=== PATIENT | female | born 1990 | race Caucasian/White ===

== ENCOUNTER → 2021-11-17 10:32 | Outpatient (BNVA) | payer MEDICAID, SELFPAY | PROVIDERS: Family Provider Family Medicine; Visit Provider Nurse Practitioner Women's Health | DX: N92.6 Irregular menstruation, unspecified (principal) | CPT/HCPCS: 81025; 84702 ==

== ENCOUNTER 2021-11-25 07:46 | Outpatient (CLI) | payer MEDICAID, SELFPAY ==
--- NOTE | 2021-11-25 08:22 | US_ITS ---
WS: [id number] INDICATION: RIGHT chest wall lump TECHNIQUE: Ultrasound chest wall area of concern FINDINGS: Ultrasound chest wall area of concern. Normal underlying subcutaneous soft tissue. No cysti c or solid lesions. No suspicious findings. US/US chest 34140 IMPRESSION: No suspicious findings in the area of concern RIGHT chest wall belo w clavicle
== END 2021-11-25 07:47 | disposition home or self-care (01) ==
LOC: RAD 07:46
PROVIDERS: PCP Nurse Practitioner Family; Visit Provider Family Medicine
DX: R22.2 Localized swelling, mass and lump, trunk (principal)
CPT/HCPCS: 76604

== ENCOUNTER → 2021-12-03 08:08 | Outpatient (BNVA) | payer MEDICAID, SELFPAY | PROVIDERS: PCP Nurse Practitioner Family; Visit Provider Obstetrics & Gynecology | DX: Z34.90 Encounter for supervision of normal pregnancy, unspecified, unspecified trimester (principal) | CPT/HCPCS: 80307; 84315; 84443; 85025; 86592; 86762; 86803; 86850; 86900; 87086; 87340 ==

== ENCOUNTER 2021-12-15 10:38 | Emergency (ER) | payer MEDICAID, SELFPAY ==
[2021-12-15 10:47] VITALS: BP 143/80; PULSE 74; RESP 20; TEMP 36.9; O2SAT 100; BMI 27.8
--- NOTE | 2021-12-15 11:01 | US_ITS ---
WS: [id number] EARLY OBSTETRICAL ULTRASOUND (<14 WEEKS). HISTORY: eval for status COMPARISON: 11/24/2021 Single intrauterine gestation is identified. There is a crown-rump length measuring 5.4 cm. This grupo esponds to gestation of 12 weeks and 0 days. No cardiac activity is identified. This was witnessed by Dr. Galindo, ER physician. No motion or activity. Placenta is posterior in the cervix is closed. No rmal amount of amniotic fluid remains. No adnexal masses. Prior ultrasound from 11/24/2021 demonstrate cardiac activity and gestational age was calculated at 8 weeks and 5 days. US/US OB <= 14 weeks fetus 20240 IMPRESSION: 1. Embryonic demise. No cardiac activity or motion identified. 2. age estimated at 12 weeks 0 days.
--- NOTE | 2021-12-15 11:10 | ED_ITS ---
HPI - General Adult General: Chief complaint: OB/Uterine Contractions Stated complaint: abnormal labs Time Seen by Provider: 12/15/21 11:01 History of Present Illness: Patient is a 31-year-old female G3, P2 presenting to the emergency room for a second opinion after she was told by Dr. Kelly an hour ago that she potentially may have had a demise. Patient tells me that earlier today, she establish care with Dr. Kelly and in the office, Dr. Kelly cannot hear any heartbeat. Patient then came to the emergency room for formal evaluation. Patient denies any new vaginal discharge, pelvic cramps or contraction, nausea/vomiting, abdominal pain, back pain, fever or chills, urinary complaints diarrhea melena hematochezia. Patient has no other focal complaints today. Onset: unknown Duration:ongoing Location:home Severity: moderate Associated symptoms: Deny chest pain, dyspnea, nausea, rash, palpitations or vomiting Review of Systems Const: Denies: fever(s) or chills Eyes: Denies: change in vision ENMT: Denies: mouth pain Card: Denies: chest pain or palpitations Resp: Denies: dyspnea or non-productive cough GI: Denies: abdominal pain, nausea, vomiting or diarrhea : Denies: dysuria Musc: Denies: extremity pain Skin/Breast: Denies: rash or new lesions Neuro: Denies: weakness in extremities Psych: Reports: other (Normal mood) Jacob/Lymph: Denies: easy bruising PFSH ED PFSH: Medical History Asthma No pertinent past medical history neghx: htn,dm,thyroid,dvt/pe PCP: VIOLET MONTELONGO Surgical History No pertinent past surgical history Family History Grandmother Breast cancer Maternal, dx age unknown Grandfather Diabetes Maternal Stroke Paternal, age 55 Mother Hypercholesteremia Hypertension Father Hypercholesteremia Hypertension Denies family history of Colon cancer Ovarian cancer Uterine cancer Thyroid disease Social History (Updated 12/15/21 @ 11:11 by Marcella Galindo MD) Smoking and tobacco status: never smoked Alcohol intake: never Substance/Drug Use: never Physical Exam Const: COMMON NORMALS: alert HENMT: COMMON NORMALS: atraumatic HEAD & SCALP: atraumatic MOUTH: moist mucous membranes not abnormal Eye: COMMON NORMALS: EOMs intact bilaterally and conjunctivae normal CONJUNCTIVA: Yes conjunctivae normal Neck/C-Spine: COMMON NORMALS: full ROM and supple Resp: COMMON NORMALS: normal respiratory effort and clear to auscultation bilaterally AUSCULTATION: clear to auscultation bilaterally Cardio: COMMON NORMALS: regular rate RATE: regular rate OTHER: No focal TTP. NO guarding rebound, guarding, rigidity. No CVA tenderness to percussion. Neg Ward/Neg McBurney's point tenderness, no suprabupic tenderness to palpation. GI: COMMON NORMALS: Soft to palpation and non-tender PALPATION: Yes Soft to palpation Extremity: COMMON NORMALS: full ROM Neuro: SENSORIUM/ORIENTATION: Yes alert MOTOR EXAM: No Abnormal motor strength present and Other motor observations present (no focal motor deficits) Psych: COMMON NORMALS: speech normal SPEECH: Yes normal speech MOOD & AFFECT: Yes euthymic mood Course Vital Signs: Vital signs: Vital Signs Temperature 98.5 F 12/15/21 10:47 Pulse Rate 86 12/15/21 11:23 Respiratory Rate 16 12/15/21 11:23 Blood Pressure 146/74 12/15/21 11:23 Pulse Oximetry 99 12/15/21 11:23 [facility] - General Adult Medical Decision Making 31-year-old female G3, P2 at 12 weeks 5 days by prior US presenting to the emergency room for evaluation of possible demise. On physical exam, patient is hemodynamically stable, no focal tenderness to palpation of the abdomen. Patient has no new vaginal discharge or bleeding. H&H appears to be stable. US showed demise. Patient is instructed to follow up with Dr. Kelly for further evaluation of her symptoms. Disposition: Discharge. Patient counseled regarding diagnostic impression, treatment plan. Patient given ED strict return precautions to return for continuation, worsening, or development of new symptoms. Instructed to f/u w/ PCP regarding symptoms today. Patient verbalized understanding. Lab Data : 12/15/21 11:06 12/15/21 11:06 Radiology Impressions Ultrasound 12/15/21 11:01 IMPRESSION: 1. Embryonic demise. No cardiac activity or motion identified. 2. age estimated at 12 weeks 0 days. Laboratory Results WBC 5.5 10^3/uL (4.0-10.0) 12/15/21 11:06 RBC 4.59 10^6/uL (4.1-5.3) 12/15/21 11:06 Hgb 13.9 g/dL (11.5-15.3) 12/15/21 11:06 Hct 39.9 % (37.0-47.0) 12/15/21 11:06 MCV 86.9 fl (81-99) 12/15/21 11:06 MCH 30.3 pg (28.0-34.0) 12/15/21 11:06 MCHC 34.8 g/dL (30.0-36.0) 12/15/21 11:06 RDW 12.1 % (12.1-15.1) 12/15/21 11:06 Plt Count 300 10^3/cmm (130-400) 12/15/21 11:06 MPV 9.7 fL (7.4-10.4) 12/15/21 11:06 Neut % (Auto) 60.8 % 12/15/21 11:06 Lymph % (Auto) 27.6 % 12/15/21 11:06 [place] % (Auto) 6.6 % 12/15/21 11:06 Eos % (Auto) 4.4 % 12/15/21 11:06 Baso % (Auto) 0.4 % 12/15/21 11:06 Neut # (Auto) 3.34 10^3/uL (1.8-7.7) 12/15/21 11:06 Lymph # (Auto) 1.5 10^3/uL (0.8-4.8) 12/15/21 11:06 [place] # (Auto) 0.4 10^3/uL (0.2-0.9) 12/15/21 11:06 Eos # (Auto) 0.2 10^3/uL (0.0-0.8) 12/15/21 11:06 Baso # (Auto) 0.0 10^3/uL (0.0-0.1) 12/15/21 11:06 Nucleated RBC % (auto) 0 % 12/15/21 11:06 Nucleated RBCs # 0.0 /100WBC 12/15/21 11:06 Sodium 136 mmol/L (136-145) 12/15/21 11:06 Potassium 4.2 mmol/L (3.5-5.1) 12/15/21 11:06 Chloride 101 mmol/L (98-107) 12/15/21 11:06 Carbon Dioxide 22 mmol/L (22-29) 12/15/21 11:06 Anion Gap 17.2 (5-19) 12/15/21 11:06 BUN 10 mg/dL (6-20) 12/15/21 11:06 Creatinine 0.4 mg/dL (0.5-0.9) L 12/15/21 11:06 GFR Calculation 186.2 mL/min (90-130) H 12/15/21 11:06 Glucose 90 mg/dL (65-115) 12/15/21 11:06 Calculated Osmolality 281 mOsm/kg (285-295) L 12/15/21 11:06 Calcium 9.6 mg/dL (8.5-10.5) 12/15/21 11:06 Total Bilirubin 0.5 mg/dL (0.15-1.2) 12/15/21 11:06 AST 14 U/L (0-32) 12/15/21 11:06 ALT 13 U/L (0-33) 12/15/21 11:06 Alkaline Phosphatase 48 IU/L (35-105) 12/15/21 11:06 Total Protein 7.2 g/dL (6.6-8.7) 12/15/21 11:06 Albumin 5.2 g/dL (3.5-5.2) 12/15/21 11:06 Globulin 2.0 g/dL (1.3-4.6) 12/15/21 11:06 Ser , Semi-Qnt 19283.00 mIU/mL 12/15/21 11:06 Urine Color Yellow (Yellow) 12/15/21 11:15 Urine Appearance Clear (CLEAR) 12/15/21 11:15 Urine pH 6 (5-7) 12/15/21 11:15 Ur Specific [place] 1.010 (1.005-1.030) 12/15/21 11:15 Urine Protein Neg (Negative) 12/15/21 11:15 Urine Glucose (UA) Norm (Normal) 12/15/21 11:15 Urine Ketones Negative (Negative) 12/15/21 11:15 Urine Blood Neg (Negative) 12/15/21 11:15 Urine Nitrate Negative (Negative) 12/15/21 11:15 Urine Bilirubin Neg (Negative) 12/15/21 11:15 Urine Urobilinogen Norm mg/dL (Negative) 12/15/21 11:15 Ur Leukocyte Esterase Negative (Negative) 12/15/21 11:15 Imaging Data Other Imaging: Radiologist's impression: [employer] [place] [address] Ultrasound Report Signed Patient: Shelia Katz Unit #: [id number] : 1990 Age/Sex: 31 / F ADM Date: 12/15/21 Loc: ER Room/Bed: Attending Dr: Ordering Provider/Ordering MD: Marcella Galindo MD Date of Service: 12/15/21 Procedure(s): US OB <= 14 weeks fetus [id number] Accession Number(s): [id number] Report Number: [id number] WS: [id number] ?EARLY OBSTETRICAL ULTRASOUND (<14 WEEKS). HISTORY: eval for status COMPARISON: 11/24/2021 Single intrauterine gestation is identified. There is a crown-rump length measuring 5.4 cm. This corresponds to gestation of 12 weeks and 0 days. No cardiac activity is identified. This was witnessed by Dr. Galindo, ER physician. No motion or activity. Placenta is posterior in the cervix is closed. Normal amount of amniotic fluid remains. No adnexal masses. Prior ultrasound from 11/24/2021 demonstrate cardiac activity and gestational age was calculated at 8 weeks and 5 days. US/US OB <= 14 weeks fetus 39183 IMPRESSION: ? 1.? Embryonic demise. No cardiac activity or motion identified. 2.? age estimated at 12 weeks 0 days. ? Dictated By: Roselyn Barrera DO Signed By: Roselyn Barrera DO Signed Date/Time: 12/15/21 1204 DD/ 1200 Discharge Plan Discharge Patient Disposition: Home Clinical Impression: demise Condition: Stable Prescriptions: No Action prenat.vits,marquita,kyd-zioc-weslx Tablet 1 tab PO DAILY 0RF fluticasone propion-salmeterol [Advair Diskus] 500-50 mcg/dose blister with device 1 inh inhalation BID 0RF Zyrtec 10 mg Tablet 10 mg PO DAILY PRN (Reason: Allergy Symptoms) 0RF levothyroxine 100 mcg tablet 100 mcg PO QAM 0RF Discharge Orders: Discharge ED (Routine); Ordered 12/15/21 Ordered By: Marcella Galindo Referrals: Violet Montelongo, BUILDING CONSTRUCTION FOREMAN [Primary Care Provider] - Discharge Diet: Advance as tolerated Discharge Activity: Increase activity as tolerated Activity Restrictions/Additional Instructions: Come back to the ER if you have any severe vaginal bleeding, new discharge, abdominal pain, nausea/vomiting, fever/chill or any other complaints. Please follow-up with Dr. Kelly for further evaluation of your symptoms mariam buchanan. Stand Alone Forms: Work/School Release Coding Level of Care Code ED Clinical Quality Assurance Specialist for Vic Fwd Exam Comprehensive
[2021-12-15 11:14] LABS: Basophils % 0.4 %; Eosinophils # 0.2 10^3/uL (0.0-0.8); Eosinophils % 4.4 %; Hematocrit 39.9 % (37.0-47.0); Hemoglobin 13.9 g/dL (11.5-15.3); Lymphocytes # 1.5 10^3/uL (0.8-4.8); Lymphocytes % 27.6 %; Mean Corpuscular HGB Conc 34.8 g/dL (30.0-36.0); Mean Corpuscular Hemoglobin 30.3 pg (28.0-34.0); Mean Corpuscular Volume 86.9 fl (81-99); Mean Platelet Volume 9.7 fL (7.4-10.4); Monocytes # 0.4 10^3/uL (0.2-0.9); Monocytes % 6.6 %; Neutrophils # 3.34 10^3/uL (1.8-7.7); Neutrophils % 60.8 %; Nucleated Red Blood Cells % 0 %; Platelet Count 300 10^3/cmm (130-400); Red Blood Count 4.59 10^6/uL (4.1-5.3); Red Cell Distribution Width 12.1 % (12.1-15.1); White Blood Count 5.5 10^3/uL (4.0-10.0)
[2021-12-15 11:23] VITALS: BP 146/74; PULSE 86; RESP 16; O2SAT 99
[2021-12-15 11:37] LABS: Add Urine Microscopic? NO; Charge for UA Resulting for Rev
[2021-12-15 11:40] LABS: Bilirubin Urine Neg (Negative); Blood Urine Neg (Negative); Glucose Urine UA Norm (Normal); Ketones Urine Negative (Negative); Leukocyte Esterase Urine Negative (Negative); Nitrate Urine Negative (Negative); Protein Urine Neg (Negative); Urine Appearance Clear (CLEAR); Urine Color Yellow (Yellow); Urobilinogen Urine Norm (Negative); pH Urine 6 (5-7)
[2021-12-15 11:54] LABS: Alanine Aminotransferase 13 U/L (0-33); Albumin Level 5.2 g/dL (3.5-5.2); Alkaline Phosphatase 48 IU/L (35-105); Anion Gap 17.2 (5-19); Aspartate Amino Transferase 14 U/L (0-32); Blood Urea Nitrogen 10 mg/dL (6-20); Calcium 9.6 mg/dL (8.5-10.5); Carbon Dioxide 22 mmol/L (22-29); Chloride 101 mmol/L (98-107); Glomerular Filtration Rate 186.2 mL/min (90-130); Glucose 90 mg/dL (65-115); Osmolality Calculated 281 mOsm/kg (285-295); Potassium 4.2 mmol/L (3.5-5.1); Sodium 136 mmol/L (136-145); Total Bilirubin 0.5 mg/dL (0.15-1.2); Total Protein 7.2 g/dL (6.6-8.7)
[2021-12-15 12:48] VITALS: BP 146/77; PULSE 85; RESP 18; O2SAT 98
== END 2021-12-15 12:50 | disposition home or self-care (01) ==
PROVIDERS: Physician Assistant; Emergency Provider Emergency Medicine; PCP Nurse Practitioner Family
DX: O36.4XX0 Maternal care for intrauterine death, not applicable or unspecified (principal); Z3A.00 Weeks of gestation of pregnancy not specified
CPT/HCPCS: 76801; 80053; 81003; 84702; 85025; 99282

== ENCOUNTER 2024-03-18 22:36 | Emergency (ER) | payer OTHER, MEDICAID, SELFPAY ==
[2024-03-18 22:56] VITALS: BP 120/73; PULSE 89; RESP 17; TEMP 36.6; O2SAT 100; BMI 27.4
[2024-03-19 00:08] LABS: Basophils % 0.4 %; Eosinophils # 0.2 10^3/uL (0.0-0.8); Eosinophils % 3.1 %; Lymphocytes # 1.5 10^3/uL (0.8-4.8); Lymphocytes % 21.5 %; Mean Corpuscular HGB Conc 34.5 g/dL (30-55); Mean Corpuscular Hemoglobin 31.3 pg (27-33); Mean Corpuscular Volume 90.9 fl (85-98); Mean Platelet Volume 9.7 fL (7.4-10.4); Monocytes # 0.4 10^3/uL (0.2-0.9); Monocytes % 6.3 %; Neutrophils # 4.67 10^3/uL (1.8-7.7); Neutrophils % 68.3 %; Nucleated Red Blood Cells % 0 %; Platelet Count 260 10^3/cmm (157-399); Red Blood Count 3.19 10^6/uL (3.85-5.65); Red Cell Distribution Width 11.8 % (12.1-15.1); White Blood Count 6.84 10^3/uL (3.29-11.43)
[2024-03-19 00:26] LABS: Alanine Aminotransferase 11 U/L (0-33); Albumin Level 4.4 g/dL (3.5-5.2); Alkaline Phosphatase 46 U/L (35-105); Anion Gap 12.9 (5-19); Aspartate Amino Transferase 14 U/L (0-32); Blood Urea Nitrogen 11 mg/dL (6-20); Carbon Dioxide 26 mmol/L (22-29); Chloride 100 mmol/L (98-107); Creatinine Clr Calc Pharmacy 94.0492; Globulin 2.4 g/dL (1.3-4.6); Glomerular Filtration Rate 82.6 mL/min (90-130); Glucose 106 mg/dL (65-115); Osmolality Calculated 280 mOsm/kg (285-295); Potassium 3.9 mmol/L (3.5-5.1); Sodium 135 mmol/L (136-145); Total Bilirubin 0.2 mg/dL (0.15-1.2); Total Protein 6.8 g/dL (6.6-8.7)
--- NOTE | 2024-03-19 02:26 | W.ED.HA ---
HPI - Headache General: Chief Complaint: Headache Stated Complaint: recent miscarage nose bleed, and shaky leg Time Seen by Provider: 03/19/24 01:51 History of Present Illness: 33-year-old female who had a miscarriage a few days ago. She experienced some pelvic bleeding, that has slowed, but is somewhat ongoing. She also had a nosebleed this evening. She presents with a flushed feeling in her head, hot feeling at the top of her head, and cramps with paresthesias to her bilateral legs with associated weakness. All of the symptoms are now resolved. She is tired, wishes to go home. She has not had a fever. Her pelvic bleeding has slowed as above. No discharge. No intense pain. COUNTS INCLUDE 234 BEDS AT THE [facility] ED PFSH: Medical History Asthma No pertinent past medical history neghx: htn,dm,thyroid,dvt/pe PCP: VIOLET MONTELONGO Surgical History No pertinent past surgical history Family History Grandmother Breast cancer Maternal, dx age unknown Grandfather Diabetes Maternal Stroke Paternal, age 55 Mother Hypercholesteremia Hypertension Father Hypercholesteremia Hypertension Denies family history of Colon cancer Ovarian cancer Uterine cancer Thyroid disease Social History Smoking and tobacco/nicotine status: never used tobacco/nicotine Alcohol intake: never Substance/Drug Use: never Physical Exam Const: COMMON NORMALS: no acute distress GENERAL APPEARANCE: cooperative; not ill appearing and not frail appearing HENMT: COMMON NORMALS: normocephalic, atraumatic and Normal external nose present HEAD & SCALP: normocephalic and atraumatic FACE & SINUS: normal facial exam and face symmetric NOSE: Normal external nose present Eye: COMMON NORMALS: Equal, round and reactive pupils present and EOMs intact bilaterally PUPIL: Yes Equal, round and reactive pupils present Neck/C-Spine: GENERAL: Yes trachea midline Chest: CHEST: Yes Symmetrical chest wall rise Resp: COMMON NORMALS: normal respiratory effort, No retractions, No use of accessory muscles and clear to auscultation bilaterally AUSCULTATION: clear to auscultation bilaterally Cardio: COMMON NORMALS: regular rate and regular rhythm RATE: regular rate RHYTHM: regular rhythm GI: COMMON NORMALS: Normal to inspection, nondistended, normoactive bowel sounds present Extremity: COMMON NORMALS: no pedal edema Neuro: LINDA COMA SCALE: document GCS findings Linda coma scale eye opening: Spontaneous Linda coma scale verbal response: Orientated Linda coma scale motor response: Obey commands [place] coma scale total score: 15 SENSORY EXAM: Yes extremities (intact) Psych: COMMON NORMALS: speech normal SPEECH: Yes normal speech Skin: COMMON NORMALS: no rashes or lesions noted GENERAL SKIN EXAM: no rashes or lesions noted OTHER: pale Course Vital Signs: Vital signs: Vital Signs Temperature 97.9 F 03/18/24 22:56 Pulse Rate 72 03/19/24 02:29 Respiratory Rate 16 03/19/24 02:29 Blood Pressure 112/66 03/19/24 02:29 Pulse Oximetry 100 03/19/24 02:29 Oxygen Delivery Me thod Room Air 03/19/24 02:29 MDM - Headache Medical Decision Making Vitals are stable. She is afebrile. Laboratory reveals hemoglobin of 10. It was 13.5 a couple of days ago. Platelet count is normal. Other labs not remarkable. Symptoms are likely coming from acute onset anemia from bleeding due to miscarriage and nosebleed. With resolution of her symptoms, she will be discharged. She will be placed on iron supplementation twice daily. She will require recheck of her laboratory to ensure her hemoglobin is staying up. Lab Data 03/18/24 23:59 03/18/24 23:59 Laboratory Results WBC 6.84 10^3/uL (3.29-11.43) 03/18/24 23:59 RBC 3.19 10^6/uL (3.85-5.65) L 03/18/24 23:59 Hgb 10.00 g/dL (11.27-16.99) L 03/18/24 23:59 Hct 29.0 % (36-47) L 03/18/24 23:59 MCV 90.9 fl (85-98) 03/18/24 23:59 MCH 31.3 pg (27-33) 03/18/24 23:59 MCHC 34.5 g/dL (30-55) 03/18/24 23:59 RDW 11.8 % (12.1-15.1) L 03/18/24 23:59 Plt Count 260 10^3/cmm (157-399) 03/18/24 23:59 MPV 9.7 fL (7.4-10.4) 03/18/24 23:59 Neut % (Auto) 68.3 % 03/18/24 23:59 Lymph % (Auto) 21.5 % 03/18/24 23:59 [place] % (Auto) 6.3 % 03/18/24 23:59 Eos % (Auto) 3.1 % 03/18/24 23:59 Baso % (Auto) 0.4 % 03/18/24 23:59 Neut # (Auto) 4.67 10^3/uL (1.8-7.7) 03/18/24 23:59 Lymph # (Auto) 1.5 10^3/uL (0.8-4.8) 03/18/24 23:59 [place] # (Auto) 0.4 10^3/uL (0.2-0.9) 03/18/24 23:59 Eos # (Auto) 0.2 10^3/uL (0.0-0.8) 03/18/24 23:59 Baso # (Auto) 0.0 10^3/uL (0.0-0.1) 03/18/24 23:59 Nucleated RBC % (auto) 0 % 03/18/24 23:59 Nucleated RBCs # 0.0 /100WBC 03/18/24 23:59 Sodium 135 mmol/L (136-145) L 03/18/24 23:59 Potassium 3.9 mmol/L (3.5-5.1) 03/18/24 23:59 Chloride 100 mmol/L (98-107) 03/18/24 23:59 Carbon Dioxide 26 mmol/L (22-29) 03/18/24 23:59 Anion Gap 12.9 (5-19) 03/18/24 23:59 BUN 11 mg/dL (6-20) 03/18/24 23:59 Creatinine 0.8 mg/dL (0.5-0.9) 03/18/24 23:59 GFR Calculation 82.6 mL/min (90-130) L 03/18/24 23:59 Glucose 106 mg/dL (65-115) 03/18/24 23:59 Calculated Osmolality 280 mOsm/kg (285-295) L 03/18/24 23:59 Calcium 9.0 mg/dL (8.5-10.5) 03/18/24 23:59 Total Bilirubin 0.2 mg/dL (0.15-1.2) 03/18/24 23:59 AST 14 U/L (0-32) 03/18/24 23:59 ALT 11 U/L (0-33) 03/18/24 23:59 Alkaline Phosphatase 46 U/L (35-105) 03/18/24 23:59 Total Protein 6.8 g/dL (6.6-8.7) 03/18/24 23:59 Albumin 4.4 g/dL (3.5-5.2) 03/18/24 23:59 Globulin 2.4 g/dL (1.3-4.6) 03/18/24 23:59 No radiology studies performed this visit Discharge Plan Discharge Patient Disposition: Home Clinical Impression: Acute blood loss anemia Condition: Stable Prescriptions: New ferrous fumarate 324 mg (106 mg iron) tablet 324 mg PO BID Qty: 60 0RF No Action fluticasone propion-salmeterol [Advair Diskus] 500-50 mcg/dose blister with device 1 inh inhalation BID PRN (Reason: Shortness Of Breath) albuterol sulfate 90 mcg/actuation HFA aerosol inhaler 1 - 2 puff INHALATION Q4H PRN (Reason: Shortness Of Breath) fluticasone propionate 50 mcg/actuation spray,suspension 1 spray INTRANASAL BID PRN (Reason: ALLERGIES) 28 mg iron- 800 mcg Tablet 1 tab PO DAILY Discharge Orders: Discharge ED (Routine); Ordered 03/19/24 Ordered By: Wilfred Solitario Referrals: Len Kelly MD [Primary Care Provider] - 4-7 days Patient Instructions: Anemia (ED), Opioid Safety, Pain Management Activity Restrictions/Additional Instructions: Symptoms you are experiencing are likely from blood loss anemia. Take your iron supplementation. Hydrate. Stay cool and decrease your activity level for the next few days. Return for worsening bleeding, fever, worsening symptoms otherwise. See your doctor this week. Coding Level of Care Code ED Wire Preparation Worker for Vic Vinson
[2024-03-19 02:29] VITALS: BP 112/66; PULSE 72; RESP 16; O2SAT 100
== END 2024-03-19 02:45 | disposition home or self-care (01) ==
PROVIDERS: Emergency Provider Emergency Medicine; PCP Family Medicine
DX: D62 Acute posthemorrhagic anemia (principal)
CPT/HCPCS: 80053; 85025; 99283

== ENCOUNTER → 2024-04-21 10:10 | Outpatient (BNVA) | payer OTHER, MEDICAID, SELFPAY | PROVIDERS: PCP Family Medicine; Visit Provider Emergency Medicine | DX: J02.9 Acute pharyngitis, unspecified (principal) | CPT/HCPCS: 87071; 87880 ==

== ENCOUNTER → 2024-09-15 13:46 | Outpatient (BNVA) | payer OTHER, MEDICAID, SELFPAY | PROVIDERS: PCP Family Medicine; Visit Provider Registered Nurse Neonatal Intensive Care | DX: R39.9 Unspecified symptoms and signs involving the genitourinary system (principal) | CPT/HCPCS: 81000 ==

== ENCOUNTER 2024-11-20 10:59 | Outpatient (CLI) | payer OTHER, SELFPAY ==
--- NOTE | 2024-11-20 11:02 | XRR_ITS ---
PROCEDURE INFORMATION: Exam: XR Right Wrist Exam date and time: 11/20/2024 11:23 AM Age: 34 years old Clinical indication: Injury or trauma; Other: Hit wrist with a panel; Blunt trauma (contusions or hematomas); Right; Injury date: 1.5 weeks ago; Additional info: Mild trauma, wrist hit by pig panel TECHNIQUE: Imaging protocol: Radiologic exam of the right wrist. Views: 3 or more views. COMPARISON: No relevant prior studies available. FINDINGS: Bones/joints: Normal. Soft tissues: Normal. XR/XR wrist RT w scaphoid 23516 IMPRESSION: No definite fracture identified.
== END 2024-11-20 11:00 | disposition home or self-care (01) ==
PROVIDERS: PCP Family Medicine; Visit Provider Emergency Medicine
DX: M25.531 Pain in right wrist (principal); W22.8XXA Striking against or struck by other objects, initial encounter
CPT/HCPCS: 73110

== ENCOUNTER → 2025-08-05 08:01 | Outpatient (BNVA) | payer OTHER, MEDICAID, SELFPAY | PROVIDERS: PCP Family Medicine; Visit Provider Obstetrics & Gynecology | DX: Z34.90 Encounter for supervision of normal pregnancy, unspecified, unspecified trimester (principal) | CPT/HCPCS: 80307; 81025; 85025; 86592; 86762; 86803; 86850; 86900; 87086; 87340; 87491; 87591; 87624; 87661; 87806 ==

== ENCOUNTER 2025-08-20 21:52 | Emergency (ER) | payer OTHER, MEDICAID, SELFPAY ==
--- OUTSIDE RECORDS SUMMARY | 2024-03-14 08:30 | XMS_ITS ---
Author Organization [facility] Address [address] [place] [address] Care Team Providers Care Cheese Cooker Name Role Phone Hoda Hong [phone] REASON FOR VISIT FU FROM US Encounters Encounter Location Date Provider Diagnosis [address] [place] [address] 03/14/2024 Hoda Hong Plan Of Treatment No Information Progress Notes * THOMAS MOFFETTB:1990 (35 yo F)Acc No.[id number]:03/14/2024 Patient: Jere DELILAHMAXINE MATHEW Provider: Maris Hong MD :1990 A ge:33 Y S ex:Female Date:03/14/2024 Address:[address], [id number] Subjective: * Chief Complaints: * F U FROM US * Electronic signature of Tonya Hong MD on 08/20/2025 at 09:59 PM CAR PARKER Sign off status: Pending * Provider: Maris Hong MD Date: 0 03/14/2024 Generated for Printi ng/Fauzmag/eTransmitting on: 1 10/21/2024 09:59 PM CAR PARKER
--- OUTSIDE RECORDS SUMMARY | 2024-03-23 02:15 | XMS_ITS ---
Author Organization [facility] Address [address] [place] [address] Care Team Providers Care Cutter Wet Machine Name Role Phone Hoda Hong Gonzalo [phone] REASON FOR VISIT V&D 10 day chano Encounters Encounter Location Date Provider Diagnosis [address] [place] [address] 03/23/2024 Hoda Hong Plan Of Treatment No Information Progress Notes * THOMAS KATZB:1990 (35 yo F)Acc No.[id number]:03/23/2024 Progress Notes Patient: Jere GROSSMAN MATHEW Provider: Maris Hong MD :1990 A ge:33 Y S ex:Female Date:03/23/2024 Address:[address], [id number] Subjective: * Chief Complaints: * V &D 10 day chano * Electronic signature of Tonya Hong MD on 08/20/2025 at 09:59 PM GROUP THERAPY COUNSELOR Sign off status: Pending * Provider: Maris Hong MD Date: 0 03/23/2024 Generated for Vick estrada/Ashley/Jenniferitting on: 1 10/21/2024 09:59 PM GROUP THERAPY COUNSELOR
--- OUTSIDE RECORDS SUMMARY | 2024-04-05 09:45 | XMS_ITS ---
Author Organization [facility] Address [address] [place] [address] Care Team Providers Care Benefits Sales Consultant Name Role Phone Hoda Hong [phone] REASON FOR VISIT f/u miscarriage Medications Medication SIG (Take, Route, Frequency, Duration) Notes Start Date End Date Status Progesterone 200 MG Suppository as directed Vaginal nightly; Duration: 30 days May substitute tablets for suppositories if not covered by insurance 02/14/2024 Active Encounters Encounter Location Date Provider Diagnosis [facility] [address] [place] [address] 04/05/2024 Hoda Hong Plan Of Treatment No Information Progress Notes * PHYLLIS KATZADOB:1990 (35 yo F)Acc No.[id number]:04/05/2024 Patient: MATHEW MORENO Provider: Maris Hong MD :1990 A ge:33 Y S ex:Female Date:04/05/2024 Address:[address], [id number] Subjective: * Chief Complaints: * F /u miscarriage * Medications: T akingProgesterone 200 MG Suppository as directed Vaginal nightly , Notes to Pharmacist: May substitute tablets for suppositories if not covered by insuranceTaking Progesterone 200 MG Suppository as directed Vaginal nightly , Notes to Pharmacist: May substitute tablets for suppositories if not covered by insurance Billing Information: * Procedure Codes: * Electronic signature of Tonya Hong MD on 08/20/2025 at 10:00 PM INFORMATION TECHNOLOGY MANAGER Sign off status: Pending * Provider: Maris Hong MD Date: 0 04/05/2024 Generated for Vick estrada/Ashley/Brock on: 1 10/21/2024 10:00 PM INFORMATION TECHNOLOGY MANAGER
--- OUTSIDE RECORDS SUMMARY | 2025-08-20 21:59 | XMS_ITS | Patient Health Record ---
Author Organization [facility] Address [address] [place] [address] Care Team Providers Care Shake Out Worker Name Role Phone Hoda Hong [phone] Results Component Value Reference Range Flag Notes Estradiol Level 02640 Reviewed date:11/13/2024 08:15:33 AM Interpretation: Performing Lab: Notes/Report: Diagnosis Description: Other fatigue Diagnosis Description: Abnormal weight gain Diagnosis Description: Generalized hyperhidrosis Diagnosis Description: Emotional lability Estradiol 66 NA Males < 0-52 Follicular Phase 11-165 Midcycle 146-526 Luteal Phase 33-133 Postmenopausal Female < 0-37 Test performed with Siemens Estradiol reagent assay. Siemens has confirmed the drug fulvestrant (Faslodex) may cause falsely elevated estradiol results when performed with this assay method. Fulvestrant (Faslodex) is an estrogen receptor antagonist which is used in the treatment of stage IV recurrent breast cancer in post-menopausal women with estrogen receptor positive breast cancer. Fulvestrant is used when other anti-estrogen drugs have failed. Fulvestrant has a similar chemical structure to estradiol and may cross-react with antibodies used in immunoassays. Follicle Stimulating Hormone (FSH) 46382 Reviewed date:11/12/2024 02:54:41 PM Interpretation: Performing Lab: Notes/Report: Diagnosis Description: Other fatigue Diagnosis Description: Abnormal weight gain Diagnosis Description: Generalized hyperhidrosis Diagnosis Description: Emotional lability Follicle Stim H 6.3 NA Reference Range: Female normal menstruating Follicular Phase 2.5-10.2 Midcycle Phase 3.4-33.4 Luteal Phase 1.5-9.1 Female <0.3 Female postmenopausal 23-116.3 Males 13Yr 1.4-18.1 Performed on the Siemens Atellica Solution IM Luteinizing Hormone 99668 Reviewed date:11/12/2024 02:54:31 PM Interpretation: Performing Lab: Notes/Report: Diagnosis Description: Other fatigue Diagnosis Description: Abnormal weight gain Diagnosis Description: Generalized hyperhidrosis Diagnosis Description: Emotional lability Luteinizing Hrm 3.26 NA Reference Ranges: Normal menstruating. Follicular Phase 1.9-12.5. Midcycle Peak 8.7-76.3. Luteal Phase 0.5-16.9. <0.1-1.5. Postmenopausal 15.9-54.0. Contraceptives 0.7-5.6. Males 20-70 Years 1.5-9.3. >70 Years 3.1-34.6. Performed on the Ufora Solution IM Progesterone (B) 63891 Reviewed date:11/12/2024 02:54:25 PM Interpretation: Performing Lab: Notes/Report: Diagnosis Description: Other fatigue Diagnosis Description: Abnormal weight gain Diagnosis Description: Generalized hyperhidrosis Diagnosis Description: Emotional lability Progesterone .21 NA Reference Ranges: Normal female follicular 0.15-1.40. Normal female luteal 3.34-25.56. Normal Mid- luteal 4.44-28.03. Post Menopausal <0.21-0.73. First Trimester 11.22-90.00. Second Trimester 25.55-89.40. Third Trimester 48.40-422.50. Normal Male 0.28-1.22. Performed on the Siemens Buz Solution IM Testosterone Total 48757 Reviewed date:11/12/2024 02:54:13 PM Interpretation: Performing Lab: Notes/Report: Diagnosis Description: Other fatigue Diagnosis Description: Abnormal weight gain Diagnosis Description: Generalized hyperhidrosis Diagnosis Description: Emotional lability Testoster Tot 14.26 7.00-48.00 NG/DL Perfo rmed on the Ufora IM Analyzer Thyroid Stimulating Hormone (TSH) 13062 Reviewed date:11/12/2024 02:54:11 PM Interpretation: Performing Lab: Notes/Report: Diagnosis Description: Other fatigue Diagnosis Description: Abnormal weight gain Diagnosis Description: Generalized hyperhidrosis Diagnosis Description: Emotional lability TSH 3.146 .358-3.740 MlU/ML Vitamin B12 (B) 97684 Reviewed date:11/12/2024 02:53:51 PM Interpretation: Performing Lab: Notes/Report: Diagnosis Description: Other fatigue Diagnosis Description: Abnormal weight gain Diagnosis Description: Generalized hyperhidrosis Diagnosis Description: Emotional lability [id number] 574 211-911 pg/mL Vitamin D Total (B) 18186 Reviewed date:11/13/2024 08:24:28 AM Interpretation: Performing Lab: Notes/Report: Diagnosis Description: Other fatigue Diagnosis Description: Abnormal weight gain Diagnosis Description: Generalized hyperhidrosis Diagnosis Description: Emotional lability Vitamin D Total 17.7 30.0-100.0 ng/mL LOW Deficiency: < 20 ng/mL Insufficiency: 20??? < 30 ng/mL Sufficiency: 30???100 ng/mL Performed on the Ufora IM Analyzer Vitamin C (B) 11087 Reviewed date:11/16/2024 01:48:26 PM Interpretation: Performing Lab: Notes/Report: Diagnosis Description: Other fatigue Diagnosis Description: Abnormal weight gain Diagnosis Description: Generalized hyperhidrosis Diagnosis Description: Emotional lability Vitamin C 64 23-114 UMOL/L NA Vitamin C concentrations lower than 11 umol/L indicate deficiency. Concentrations between 11 and 23 umol/L are consistent with a moderate risk of deficiency due to inadequate tissue stores. Vitamin C concentration is reported as micromoles per liter (umol/L). To convert concentration to milligrams per deciliter (mg/dL), multiply the result by 0.0176. This test was developed and its performance characteristics determined by [facility]. It has not been cleared or approved by the US Food and Drug Administration. This test was performed in a CLIA certified laboratory and is intended for clinical purposes. Performed By: [facility] [address] [place] [address] Storeroom Attendant: Cesar Ambrose MD, PhD CLIA Number: [id number] DHEA Sulfate 77865 Reviewed date:11/15/2024 12:38:45 PM Interpretation: Performing Lab: Notes/Report: Diagnosis Description: Other fatigue Diagnosis Description: Abnormal weight gain Diagnosis Description: Generalized hyperhidrosis Diagnosis Description: Emotional lability DHEA Sulfate 70 99-340 UG/DL LOW REFERENCE INTERVAL: DHEAS Access complete set of age- and/or gender-specific reference intervals for this test in the Incoming Media Test Directory ([employer]ju). Performed By: [facility] [address] [place] [address] Storeroom Attendant: Cesar Ambrose MD, PhD CLIA Number: [id number] Magnesium (B) 55360 Reviewed date:11/12/2024 02:53:10 PM Interpretation: Performing Lab: Notes/Report: Diagnosis Description: Other fatigue Diagnosis Description: Abnormal weight gain Diagnosis Description: Generalized hyperhidrosis Diagnosis Description: Emotional lability Magnesium 2.0 1.8-2.4 MG/DL Comprehensive Metabolic Pane l (CMP) 43279 Reviewed date:11/12/2024 02:53:15 PM Interpretation: Performing Lab: Notes/Report: Diagnosis Description: Other fatigue Diagnosis Description: Abnormal weight gain Diagnosis Description: Generalized hyperhidrosis Diagnosis Description: Emotional lability Glucose Serum 96 71-110 MG/DL Testing p erformed at [address] [place] [address]. CLIA ID#: [id number] BUN 14 7-21 MG/DL Creat .73 .51-1.17 MG/DL J-ocymyl-a-benzoquinone imine (NAPQI) is a metabolite of acetaminophen, NAPQI concentrations of apparoximately 10 mg/L correlation to toxic levels of acetaminophen demonstrates a greater than or equil to 10% change in results. NAPQI concentrations greater than this may lead to falsely depressed results for patient samples. Use of this assay is not recommended for patients undergoing treatment with phenindione, due to the potential for falsely depressed results. GFR 110.7 NA Calculation pe rformed from GFR calculator provided by the [employer]. Glomerular Filtration rate(GRF) is the best overall index of kidney function. Normal GFR varies according to age,sex, body size, and declines with age. The National Kid[employer] recommends using the CKD-EPI Creatinine Equation(2020) to estimate GFR. BUN/Creat Ratio 19.2 12.0-20.0 % Total Protein 7.1 5.8-8.0 G/DL Albumin 4.9 3.2-4.8 G/DL HI Globulin 2.2 2.3-3.5 G/DL LOW Alb/Glob 2.2 0.8-2.2 Calcium 9.9 8.7-10.4 MG/DL Sodium 137 136-145 MMOL/L Potassium 4.4 3.5-5.1 MMOL/L Chloride 102 98-107 MMOL/L CO2 26.1 20.0-31.0 MMOL/L Anion Gap 13 5-15 Alk Phos 50 46-116 Bili Total .7 .3-1.2 MG/DL Use of this assay is not recommended for patients undergoing treatment with eltrombopag due to the potential for falsely elevated results. AST/SGOT 16 15-37 UNIT/L ALT/SGPT 15 12-78 UNIT/L Osmo Serum,Calculated 284 280-300 MOSM/KG Hemoglobin A1c 44550 Reviewed date:11/12/2024 02:55:01 PM Interpretation: Performing Lab: Notes/Report: Diagnosis Description: Other fatigue Diagnosis Description: Abnormal weight gain Diagnosis Description: Generalized hyperhidrosis Diagnosis Description: Emotional lability Hgb A1c 4.8 3.8-6.4 % Interpretation Of Hgb A1c: 4.5-6.2 % nondiabetics. >7.0 % diabetics. EAG 91 NA Estimated Aver age Glucose(EAG). Reason For Referral No Information Medications Medication SIG (Take, Route, Frequency, Duration) Notes Start Date End Date Status Progesterone 200 MG Suppository as directed Vaginal nightly; Duration: 30 days May substitute tablets for suppositories if not covered by insurance 02/14/2024 Active Encounters Encounter Location Date Provider Diagnosis [address] [place] [address] 11/13/2024 Hoda Hong [address] [place] [address] 10/08/2024 Hoda Hong Fatigue, unspecified type R53.83 ; Weight gain R63.5 ; Night sweats R61 and Labile mood R45.86 Assessments Encounter Date Diagnosis (ICD Code) Assessment Notes Treatment Notes Treatment Clinical Notes Section Notes 10/08/2024 Fatigue, unspecified type (ICD-10 - R53.83) 10/08/2024 Weight gain (ICD-10 - R63.5) 10/08/2024 Night sweats (ICD-10 - R61) 10/08/2024 Labile mood (ICD-10 - R45.86) Plan Of Treatment Pending Test Test Name Order Date Comprehensive Metabolic Panel (CMP) 8005 3 10/08/2024 Estradiol Level 71484 10/08/2024 Follicle Stimulating Hormone (FSH) 78898 10/08/2024 Hemoglobin A1c 83203 10/08/2024 Luteinizing Hormone 03788 10/08/2024 Magnesium (B) 35153 10/08/2024 Progesterone (B) 16256 10/08/2024 Testosterone Total 08269 10/08/2024 Thyroid Stimulating Hormone (TSH) 18404 10/08/2024 Vitamin B12 (B) 73626 10/08/2024 Vitamin D Total (B) 46390 10/08/2024 Vitamin C (B) 79402 10/08/2024 DHEA Sulfate 60606 10/08/2024 Insurance Providers Payer Name Payer Address Payer Phone Subscriber Number Group Number Insured Name Patient Relationship to Insured Coverage Start Date Coverage End Date [employer] [address] [place] [phone] [id number] WILLIAM KATZ Spouse - patient is the spouse of the insured [facility] Commercial [address] [address] [place] [address] [id number] MATHEW KATZ Self - patient is the insured [place] Medicaid [address] [place] [address] [id number] MATHEW KATZ Self - patient is the insured
[2025-08-20 22:05] VITALS: BP 146/93; PULSE 81; RESP 18; TEMP 36.9; O2SAT 99; BMI 29.2
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
[2025-08-20 23:30] VITALS: BP 130/71; PULSE 71; O2SAT 97
[2025-08-21 00:47] VITALS: BP 126/81; PULSE 77; O2SAT 97
== END 2025-08-21 00:47 | disposition home or self-care (01) ==
PROVIDERS: Emergency Provider Emergency Medicine; PCP Obstetrics & Gynecology
DX: O9A.212 Injury, poisoning and certain other consequences of external causes complicating pregnancy, second trimester (principal); W86.8XXA Exposure to other electric current, initial encounter; Z3A.14 14 weeks gestation of pregnancy; T75.4XXA Electrocution, initial encounter
CPT/HCPCS: 76801; 99284

== ENCOUNTER → 2025-08-27 07:53 | Outpatient (BNVA) | payer OTHER, MEDICAID, SELFPAY | PROVIDERS: PCP Family Medicine; Visit Provider Nurse Practitioner Women's Health | DX: O09.899 Supervision of other high risk pregnancies, unspecified trimester (principal); Z3A.00 Weeks of gestation of pregnancy not specified | CPT/HCPCS: 82105; 82306; 82950; 84315 ==

== ENCOUNTER → 2025-09-11 08:33 | Outpatient (BNVA) | payer OTHER, MEDICAID, SELFPAY | PROVIDERS: PCP Family Medicine; Visit Provider Obstetrics & Gynecology | DX: Z34.80 Encounter for supervision of other normal pregnancy, unspecified trimester (principal) | CPT/HCPCS: 84315 ==